=== PATIENT | female | born 1980 | race Caucasian/White ===

== ENCOUNTER 2016-12-07 23:43 | Inpatient (IN) | payer OTHER ==
[2016-12-08] MEDS ORDERED: Sodium Chloride 0.9% 10 ML Syringe FLUSH PRN (07:29)
[2016-12-08] MEDS ORDERED: Oxytocin/Lactated Ringers 10 UNIT/1,000 ML BAG IV SCH (07:30)
[2016-12-08] MEDS ORDERED: Nalbuphine 20 MG/1 ML Amp ONE (07:59)
[2016-12-08] MEDS ORDERED: Nalbuphine 20 MG/1 ML Amp IM ONE (07:59)
[2016-12-08] MEDS: Lactated Ringers 1,000 ML IV SCH ×4 (08:11→09:36)
[2016-12-08] MEDS ORDERED: fentaNYL 100 MCG/2 ML SDV ONE (08:25)
[2016-12-08] MEDS ORDERED: diphenhydrAMINE 50 MG/ML SDV IVPUSH PRN (08:39)
[2016-12-08] MEDS ORDERED: fentaNYL 100 MCG/2 ML SDV EPIDUR PRN (08:39)
[2016-12-08] MEDS ORDERED: ePHEDrine 50 MG/ML SDV IVPUSH PRN (08:39)
[2016-12-08] MEDS ORDERED: Bupivacaine/fentaNYL/NS 100 ML Bag EPIDUR SCH (08:45)
--- NOTE | 2016-12-08 08:45 | PCM.PREANE ---
Preanesthetic Assessment - Procedure Proposed Procedure: Patient with extreme anxiety- moving about- much reassurance given - Anesthesia/Transfusion/Family Hx Anesthesia History: Prior Anesthesia Without Reaction Family History of Anesthesia Reaction: No Transfusion History: No Prior Transfusion(s) - Review of Systems General: No Symptoms Pulmonary: No Symptoms Cardiovascular: No Symptoms Gastrointestinal: No Symptoms Neurological: No Symptoms Other: Reports: None - Physical Assessment Pulse: 103 O2 Sat by Pulse Oximetry: 96 Respiratory Rate: 20 Blood Pressure: 136/75 Height: 5 ft 5 in Weight: 103.873 kg ASA Class: 2 Mental Status: Alert & Oriented x3 Airway Class: Mallampati = 1 Dentition: Reports: Normal Dentition Thyro-Mental Finger Breadths: 3 Mouth Opening Finger Breadths: 3 ROM/Head Extension: Full Lungs: Clear to Auscultation, Normal Respiratory Effort Cardiovascular: Regular Rate, Regular Rhythm - Lab Values: Laboratory Last Values WBC 23.42 K/mm3 (3.98-10.04) H 12/08/16 07:11 RBC 4.48 M/mm3 (3.98-5.22) 12/08/16 07:11 Hgb 13.0 gm/L (11.2-15.7) 12/08/16 07:11 Hct 38.4 % (34.1-44.9) 12/08/16 07:11 MCV 85.7 fl (79.4-94.8) 12/08/16 07:11 MCH 29.0 pg (25.6-32.2) 12/08/16 07:11 MCHC 33.9 g/dl (32.2-35.5) 12/08/16 07:11 RDW Std Deviation 44.1 fL (36.4-46.3) 12/08/16 07:11 Plt Count 352 K/mm3 (182-369) 12/08/16 07:11 MPV 10.3 fl (9.4-12.3) 12/08/16 07:11 Neut % (Auto) 83.2 % (34.0-71.1) H 12/08/16 07:11 Lymph % (Auto) 11.1 % (19.3-51.7) L 12/08/16 07:11 [place] % (Auto) 5.3 % (4.7-12.5) 12/08/16 07:11 Eos % (Auto) 0 (0.7-5.8) L 12/08/16 07:11 Baso % (Auto) 0.1 % (0.1-1.2) 12/08/16 07:11 Neut # (Auto) 19.49 K/mm3 (1.56-6.13) H 12/08/16 07:11 Lymph # (Auto) 2.59 K/mm3 (1.18-3.74) 12/08/16 07:11 [place] # (Auto) 1.24 K/mm3 (0.24-0.36) H 12/08/16 07:11 Eos # (Auto) 0.01 K/mm3 (0.04-0.36) L 12/08/16 07:11 Baso # (Auto) 0.02 K/mm3 (0.01-0.08) 12/08/16 07:11 Manual Slide Review Normal smear 12/08/16 07:11 - Allergies Allergies/Adverse Reactions: Allergies Allergy/AdvReac Type Severity Reaction Status Date / Time No Known Allergies Allergy Verified 12/08/16 02:18 - Blood Blood Available: No - Acknowledgements Anesthesia Type Planned: Epidural Pt an Appropriate Candidate for the Planned Anesthesia: Yes Alternatives and Risks of Anesthesia Discussed w Pt/Guardian: Yes Pt/Guardian Understands and Agrees with Anesthesia Plan: Yes PreAnesthesia Questionnaire - Past Health History Medical/Surgical History: Denies Medical/Surgical History Cardiovascular History: Reports: None Respiratory History: Reports: None Gastrointestinal History: Reports: GERD (with preg) 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 (40 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 2 days) Para: 0 - Past Surgical History HEENT Surgical History: Reports: Oral Surgery Musculoskeletal Surgical History: Reports: Other (See Below) (pulled nail off toe) - SUBSTANCE USE Smoking Status *Q: Former Smoker Tobacco Use Within Last Twelve Months: No Second Hand Smoke Exposure: No Days Per Week of Alcohol Use: 0 Recreational Drug Use History: No - CURRENT (IN HOUSE) MEDS Current Meds: Current Medications Diphenhydramine HCl (Benadryl) 25 mg IVPUSH Q6H PRN PRN Reason: pruritis Ephedrine Sulfate (Ephedrine Sulfate) 5 mg IVPUSH ASDIRECTED PRN PRN Reason: Hypotension Fentanyl (Sublimaze) 100 mcg EPIDUR Q3H PRN PRN Reason: Pain Fentanyl/Bupivacaine HCl (Fentanyl/Bupivacaine/Ns 2 Mcg-0.125% 100 Ml) 100 ml EPIDUR ASDIRECTED GARY Lactated Ringer's (Ringers, Lactated) 1,000 mls @ 100 mls/hr IV ASDIRECTED GARY Last Admin: 12/08/16 08:11 Dose: 100 mls/hr Oxytocin/Lactated Ringer's (Pitocin In Lr 10 Units/1,000 Ml) 10 unit in 1,000 mls @ 100 mls/hr IV .CONTINUOUS [facility] Sodium Chloride (Saline Flush) 10 ml FLUSH ASDIRECTED PRN PRN Reason: Keep Vein Open Discontinued Medications Fentanyl (Sublimaze) Confirm Administered Dose 100 mcg .ROUTE .STK-MED ONE Stop: 12/08/16 08:26 Nalbuphine HCl (Nubain) 10 mg IM ONETIME ONE Stop: 12/08/16 08:00 Last Admin: 12/08/16 08:10 Dose: 20 mg Nalbuphine HCl (Nubain) Confirm Administered Dose 20 mg .ROUTE .STK-MED ONE Stop: 12/08/16 08:00 Last Admin: 12/08/16 08:11 Dose: Not Given
--- NOTE | 2016-12-08 09:15 | PCM.SN ---
- Free Text/Narrative Note: 12/08/16 [id number] IV started 20 guage right hand times 2 attempts. secured and flushes well. Home
--- NOTE | 2016-12-08 10:04 | PCM.LDHP ---
L&D History of Present Illness - General Date of Service: 12/08/16 Admit Problem/Dx: Patient Status Order with Admit Dx/Problem 12/08/16 00:00 Patient Status [ADT] Routine Admission Diagnosis/Problem Admission Diagnosis/Problem 12/08/16 09:44 Lavinia is a 36-year-old 1 para 0 white female at 40-2/7 weeks gestational age admitted for active labor Source of Information: Patient, Other History Limitations: Reports: No Limitations - History of Present Illness Introduction:: History of present illness: The patient is a 36-year-old 1 para 0 white female who began brittney during the course of the night of 12/07/2016. She is 40 2/7 weeks as dated by an early ultrasound done on 04/24/2016 at 7-5/7 weeks giving an TERA of 12/06/2016. Patient had a repeat ultrasound on 07/19/2016 supporting the first ultrasound dating. Patient began having contractions during the course of the night and is admitted she progressed from 3-5 cm relatively quickly. She initially did not desire any pain control but now has an epidural in place. Her tones of been reassuring. 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 Patient seen initially on 04/24/2016 for first visit and had regular care up until the time of admission to the hospital. Her vital signs were stable. Her weight gain has been from approximately 167 pounds to 212 pounds for a 47 pound weight gain. Patient's course is been relatively unremarkable. She does have a birthing plan. laboratory testing: Blood is O+ with a negative antibody screen. First hemoglobin was 13.6 and platelets are 270,000. Rubella titer was positive. Hepatitis B surface antigen was nonreactive. HIV was negative. Chlamydia and gonorrhea assays were both negative. Second Trimester hemoglobin was 11.4. Platelets at second trimester 270,000 1R glucose tolerance test was 97 mg/dL. TSH done in the fall of 2015 was normal at 1.92 microunits per milliliter. Group B strep screen was negative. Allergies: None Medications: 1. vitamins 1 daily by mouth. Past medical history: 1. History of polyarthralgia 2. Rheumatoid factor positive 3. History positive ovarian syndrome 4. High risk HPV infection Past surgical history: 1. D&C 2. [place] teeth extraction. Family history: Mother with hypertension. Father with history of lung cancer. One brother healthy. Mother with some back problems. No bleeding or blood clotting problems noted in the family. Social history: Patient is . is Kyle. She denies any significant alcohol, drugs or tobacco. She works at [employer]. They live in the [place] area. Review of systems: In general patient is in labor and initially was having a lot of pain and she is not doing well status post epidural Skin: negative Cardiovascular: No chest pain or exercise intolerance Respiratory: No infectious symptoms or shortness of breath. Breasts: Changes since GI: No concerns : Changes associated with Musculoskeletal: Negative Neurologic: Negative. Physical exam in general the patient is a well-developed, well-nourished, pleasant female after the epidural was placed who appears fairly oriented 3 and a reasonably good historian. Skin is warm and dry without lesions. HEENT, neck and back the normal snip her lungs are clear with good breath sounds in all lung leija. Cardiovascular exam shows regular rate and rhythm without murmurs. Breast exam is deferred. Abdomen is protuberant with fundal height consistent with dates. Cervical exam shows upon initial evaluation cervix to be dilated 5 cm, 95% effaced, bulging bag of estrada, mid position, soft. Extremities and neurological exam are grossly within normal limits. 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: - Past Surgical History HEENT Surgical History: Reports: Oral Surgery Musculoskeletal Surgical History: Reports: Other (See Below) (pulled nail off toe) Social & Family History - Family History Family Medical History: Noncontributory - Tobacco Use Smoking Status *Q: Former Smoker Years of Tobacco use: 8 Packs/Tins Daily: 0.5 Used Tobacco, but Quit: Yes Month Tobacco Last Used: Second Hand Smoke Exposure: No - Caffeine Use Caffeine Use: Reports: Coffee Other Caffeine Use: 1/day - Alcohol Use Days Per Week of Alcohol Use: 0 - Recreational Drug Use Recreational Drug Use: No H&P Review of Systems - Review of Systems: Review Of Systems: See Below L&D Exam - Exam Exam: See Below - Vital Signs Vital Signs: Last Vital Signs Temp Pulse 103 H 12/08/16 08:45 Resp 20 12/08/16 08:45 BP 136/75 12/08/16 08:45 Pulse Ox 96 12/08/16 08:45 Weight: 103.873 kg - Patient Data Lab Results Last 24 hrs: Laboratory Results - last 24 hr 12/08/16 Range/Units 07:11 WBC 23.42 H (3.98-10.04) K/mm3 RBC 4.48 (3.98-5.22) M/mm3 Hgb 13.0 (11.2-15.7) gm/L Hct 38.4 (34.1-44.9) % MCV 85.7 (79.4-94.8) fl MCH 29.0 (25.6-32.2) pg MCHC 33.9 (32.2-35.5) g/dl RDW Std Deviation 44.1 (36.4-46.3) fL Plt Count 352 (182-369) K/mm3 MPV 10.3 (9.4-12.3) fl Neut % (Auto) 83.2 H (34.0-71.1) % Lymph % (Auto) 11.1 L (19.3-51.7) % [place] % (Auto) 5.3 (4.7-12.5) % Eos % (Auto) 0 L (0.7-5.8) Baso % (Auto) 0.1 (0.1-1.2) % Neut # (Auto) 19.49 H (1.56-6.13) K/mm3 Lymph # (Auto) 2.59 (1.18-3.74) K/mm3 [place] # (Auto) 1.24 H (0.24-0.36) K/mm3 Eos # (Auto) 0.01 L (0.04-0.36) K/mm3 Baso # (Auto) 0.02 (0.01-0.08) K/mm3 Manual Slide Review Normal smear Result Diagrams: 12/08/16 07:11 Problem List Initiated/Reviewed/Updated: Yes Orders Last 24hrs: Active Orders 24 hr Category Date Time Status Patient Status [ADT] Routine ADT 12/08/16 00:00 Active Activity as Tolerated [RC] PFP Care 12/08/16 02:19 Active Communication Order [RC] ASDIRECTED Care 12/08/16 02:19 Active Heart Tones [RC] ASDIRECTED Care 12/08/16 02:19 Active Notify Provider [RC] ASDIRECTED Care 12/08/16 08:39 Active Notify Provider [RC] PFP Care 12/08/16 02:19 Active Notify Provider [RC] PRN Care 12/08/16 02:19 Active Peripheral IV Care [RC] . DIRECTED Care 12/08/16 07:30 Active Vital Signs [RC] PER UNIT ROUTINE Care 12/08/16 02:19 Active Bupivacaine/fentaNYL/NS [fentaNYL/Bupivacaine/NS 2 MCG- Med 12/08/16 08:45 Active 0.125% 100 ML] 100 ml EPIDUR ASDIRECTED Lactated Ringers [Ringers, Lactated] 1,000 ml Med 12/08/16 07:30 Active IV ASDIRECTED Oxytocin/Lactated Ringers [Pitocin in LR 10 Units/1,000 Med 12/08/16 07:30 Active ML] 10 unit in 1,000 ml IV .CONTINUOUS Sodium Chloride 0.9% [Saline Flush] Med 12/08/16 07:29 Active 10 ml FLUSH ASDIRECTED PRN diphenhydrAMINE [Benadryl] Med 12/08/16 08:39 Active 25 mg IVPUSH Q6H PRN ePHEDrine [ePHEDrine Sulfate] Med 12/08/16 08:39 Active 5 mg IVPUSH ASDIRECTED PRN fentaNYL [Sublimaze] Med 12/08/16 08:39 Active 100 mcg EPIDUR Q3H PRN Electronic Heart Tones Ext w TOCO [WOMSER] Oth 12/08/16 02:19 Ordered Routine Electronic Heart Tones Internal [WOMSER] Per Unit Oth 12/08/16 02:19 Ordered Routine Peripheral IV Insertion Adult [OM.PC] Routine Oth 12/08/16 07:30 Ordered Resuscitation Status Routine Resus Stat 12/08/16 02:19 Ordered Medication Orders Diphenhydramine HCl (Benadryl) 25 mg IVPUSH Q6H PRN PRN Reason: pruritis Ephedrine Sulfate (Ephedrine Sulfate) 5 mg IVPUSH ASDIRECTED PRN PRN Reason: Hypotension Fentanyl (Sublimaze) 100 mcg EPIDUR Q3H PRN PRN Reason: Pain Last Admin: 12/08/16 08:46 Dose: 100 mcg Fentanyl/Bupivacaine HCl (Fentanyl/Bupivacaine/Ns 2 Mcg-0.125% 100 Ml) 100 ml EPIDUR ASDIRECTED [facility] Last Admin: 12/08/16 08:46 Dose: 100 ml Lactated Ringer's (Ringers, Lactated) 1,000 mls @ 100 mls/hr IV ASDIRECTED [facility] Last Admin: 12/08/16 09:36 Dose: 100 mls/hr Infusion: 12/08/16 09:00 Dose: 100 mls/hr Admin: 12/08/16 08:59 Dose: 100 mls/hr Infusion: 12/08/16 08:59 Dose: 100 mls/hr Admin: 12/08/16 08:11 Dose: 100 mls/hr Oxytocin/Lactated Ringer's (Pitocin In Lr 10 Units/1,000 Ml) 10 unit in 1,000 mls @ 100 mls/hr IV .CONTINUOUS [facility] Sodium Chloride (Saline Flush) 10 ml FLUSH ASDIRECTED PRN PRN Reason: Keep Vein Open Assessment/Plan Comment:: Assessment: 1. 40-2/7 week intrauterine , active labor with normal progression. 2. Group B strep negative 3. Epidural in place and working well. 4. Patient plans to nurse. 5. Patient wants natural childbirth if possible. Plan: 1. Anticipate normal spontaneous vaginal delivery 2. Epidural for pain 3. Support nursing decision.
[2016-12-08] MEDS ORDERED: Bupivacaine 0.25% 10 ML SDV ONE (15:01)
[2016-12-08] MEDS ORDERED: Benzocaine/Menthol 20%-0.5% Spray 56 GM Canister TOP PRN (15:01)
[2016-12-08] MEDS ORDERED: Acetaminophen 325 MG Tab PO PRN (15:01)
[2016-12-08] MEDS ORDERED: Docusate Sodium 100 MG Cap PO PRN (15:01)
[2016-12-08] MEDS ORDERED: Lanolin 100% Cream 7 GM Tube TOP PRN (15:01)
[2016-12-08] MEDS ORDERED: Witch Hazel Medicated Pads 100/Jar TOP PRN (15:01)
--- NOTE | 2016-12-08 15:01 | PCM.SN ---
- Free Text/Narrative Note: Lavinia is a 36-year-old 1 now para 1001 white female who is admitted on the a.m. of 12/08/2016 at 40-4/7 weeks gestational age in active labor. She isn't initially found to have dilated to 3 cm from 1-2 on her last clinic visit. She then slowly but very consistently dilated to complete cervical dilation by approximately 1200 hrs. She is allowed to labor down for approximately an hour and a half and then began pushing. Amniotic fluid was minimal but did appear clear. She had an epidural for pain control. Meeks catheter was placed for uterine drainage. She delivered a viable, mccarty, female with Apgars of 9 and 9, a weight of 3930 grams (8 pounds and 10.6 ounces), a length of 20.7 inches. She delivered in a occiput anterior position. Baby was completely delivered, nose and mouth are bulb suctioned the baby was placed on the mom's abdomen. The umbilical cord which had 3 vessels was allowed to stop pulsating at which time was clamped 2 and cut by the father of the baby. Cord blood was then obtained. Placenta was then delivered eventually in a Plata presentation. It appeared intact and complete. Patient had a second-degree perineal laceration which was repaired with 3-0 Monocryl in a routine fashion. She had a very superficial periclitoral laceration on the left side. This however was not bleeding and was not significantly anatomically distorted. No stitches were placed in this area. Patient refused Pitocin IV after delivery. Fundal massage was used to help contract the uterus to decrease bleeding. Blood loss was 200 mL. Condition: Good
--- NOTE | 2016-12-09 08:39 | PCM.SN ---
- Free Text/Narrative Note: day: Patient is doing well. She has minimal lochia, is voiding well, ambulating well. She has some pain in the back where the epidural was placed. Vital signs are stable, patient had a low-grade temp last evening but this is now resolved. Abdomen soft, nontender uterus is at the umbilicus. It is nontender. Extremities and are within normal limits. +1 pitting edema is present but this was present prior to delivery. White blood count is elevated at 23,000. No evidence of infection at this time. Assessment: 1. day 1doing well clinically 2. Elevated white blood count-no clinical evidence of infection-most probably secondary to labor and delivery Plan: 1. Monitor clinically for signs of infection 2. Recheck white blood count in a.m. Possibly home tomorrow.
[2016-12-09] MEDS ORDERED: Prenatal Multivitamin with Calcium/Folic Acid/Iron Tab PO SCH (09:00)
[2016-12-09] MEDS: Ibuprofen 600 MG Tab PO PRN ×2 (10:24→19:20)
--- NOTE | 2016-12-09 20:04 | PCM48HPAN ---
Post Anesthesia Note - EVALUATION WITHIN 48HRS OF ANESTHETIC Vital Signs in Normal Range: Yes Patient Participated in Evaluation: Yes Respiratory Function Stable: Yes Airway Patent: Yes Cardiovascular Function Stable: Yes Hydration Status Stable: Yes Pain Control Satisfactory: Yes Nausea and Vomiting Control Satisfactory: Yes Mental Status Recovered: Yes
[2016-12-09 22:59] VITALS: BP 106/71
--- NOTE | 2016-12-10 06:46 | PCM.DCSUM1 ---
Discharge Summary - Hospital Course Free Text/Narrative:: Lavinia is a 36-year-old 1 now para 1001 white female who is admitted on the a.m. of 12/08/2016 at 40-4/7 weeks gestational age in active labor. She was initially found to have dilated to 3 cm from 1-2 on her last clinic visit. She then slowly but very consistently dilated to complete cervical dilation by approximately 1200 hrs. She is allowed to labor down for approximately an hour and a half and then began pushing. Amniotic fluid was minimal but did appear clear. She had an epidural for pain control. Meeks catheter was placed for uterine drainage. She delivered a viable, mccarty, female infant with Apgars of 9 and 9, a weight of 3930 grams (8 pounds and 10.6 ounces), a length of 20.7 inches. She delivered in a occiput anterior position. Baby was completely delivered, nose and mouth are bulb suctioned the baby was placed on the mom's abdomen. The umbilical cord which had 3 vessels was allowed to stop pulsating at which time was clamped 2 and cut by the father of the baby. Cord blood was then obtained. Placenta was then delivered eventually in a Plata presentation. It appeared intact and complete. Patient had a second-degree perineal laceration which was repaired with 3-0 Monocryl in a routine fashion. She had a very superficial periclitoral laceration on the left side. This however was not bleeding and was not significantly anatomically distorted. No stitches were placed in this area. Patient refused Pitocin IV after delivery. Fundal massage was used to help contract the uterus to decrease bleeding. Blood loss was 200 mL. patient is doing well. She is nursing without concerns, ambulating well and is voiding without problems. She has some back pain from the epidural site but is doing well and is happy with the results. She is desiring to go home today. - Discharge Data Discharge Date: 12/10/16 Discharge Disposition: Home, Self-Care 01 Condition: Good - Patient Instructions Diet: Regular Diet as Tolerated (Nursing diet was increased calories and calcium ) Activity: As Tolerated (No intercourse or tampons until bleeding resolves) Driving: Do Not Drive (2 days) Showering/Bathing: May Shower (May take a bath) Notify Provider of: Fever, Increased Pain, Swelling and Redness, Nausea and/or Vomiting - Discharge Plan Home Medications: Home Meds Ibuprofen [IJD: Ibuprofen] 600 mg PO Q4H PRN tablet 12/10/16 [Rx] Vit with Ca/FA/Iron [ Plus Iron] 1 each PO DAILY tablet [Rx] Patient Handouts: Vaginal Delivery, Care After Referrals: Sofía Paulino MD [Physician] - (Return to clinicDr. Paulino6 weeks.) - Discharge Summary/Plan Comment DC Time >30 min.: No Discharge Summary/Plan Comment: Discharge instructions: 1. Discharge home 2. Regular, high fiber, nursing diet was increased calories and calcium is recommended. 3. Follow-up and activity discussed with patient in detail. 4. Precautions given concern increased pain, bleeding, temperature, signs/ symptoms of DVT/PE. 5. Medications per home medication was printed, discussed with and given to the patient. 6. Return to clinic-6 weeks-Dr. Paulino. Diagnosis: 40-4/7 week intrauterine -delivered Condition: Good - Patient Data Vitals - Most Recent: Last Vital Signs Temp 36.8 C 12/09/16 22:09 Pulse 80 12/09/16 22:09 Resp 16 12/09/16 22:09 BP 106/71 12/09/16 22:09 Pulse Ox 96 12/09/16 22:09 Weight - Most Recent: 103.873 kg I&O - Last 24 hours: Intake & Output 12/09/16 12/09/16 12/10/16 14:59 22:59 06:59 Intake Total 180 180 Balance 180 180 Lab Results - Last 24 hrs: Laboratory Results - last 24 hr 12/09/16 Range/Units 07:25 WBC 22.77 H (3.98-10.04) K/mm3 RBC 3.75 L (3.98-5.22) M/mm3 Hgb 10.8 L (11.2-15.7) gm/L Hct 32.4 L (34.1-44.9) % MCV 86.4 (79.4-94.8) fl MCH 28.8 (25.6-32.2) pg MCHC 33.3 (32.2-35.5) g/dl RDW Std Deviation 45.7 (36.4-46.3) fL Plt Count 260 (182-369) K/mm3 MPV 10.2 (9.4-12.3) fl Med Orders - Current: Current Medications Acetaminophen (Tylenol) 650 mg PO Q4H PRN PRN Reason: mild pain or fever Benzocaine/Menthol (Dermoplast Pain Relief Hessel) 0 gm TOP ASDIRECTED PRN PRN Reason: Perineal Comfort Measure Last Admin: 12/08/16 15:51 Dose: 1 applic Docusate Sodium (Colace) 100 mg PO BID PRN PRN Reason: Constipation Emollient Ointment (Lansinoh Hpa) 0 gm TOP ASDIRECTED PRN PRN Reason: Sore Nipples Ibuprofen (Motrin) 600 mg PO Q4H PRN PRN Reason: Mild pain or fever Last Admin: 12/09/16 19:20 Dose: 600 mg Prenat Multivit/Pet Training Instructor/Iron/Folic Ac ( Plus Iron) 1 each PO DAILY [facility] Last Admin: 12/09/16 10:24 Dose: 1 each Witch Penny (Tucks) 1 pad TOP ASDIRECTED PRN PRN Reason: Hemorrhoid pain Last Admin: 12/08/16 15:51 Dose: 1 applic Discontinued Medications Diphenhydramine HCl (Benadryl) 25 mg IVPUSH Q6H PRN PRN Reason: pruritis Ephedrine Sulfate (Ephedrine Sulfate) 5 mg IVPUSH ASDIRECTED PRN PRN Reason: Hypotension Fentanyl (Sublimaze) Confirm Administered Dose 100 mcg .ROUTE .STK-MED ONE Stop: 12/08/16 08:26 Last Admin: 12/08/16 12:23 Dose: Not Given Fentanyl (Sublimaze) 100 mcg EPIDUR Q3H PRN PRN Reason: Pain Last Admin: 12/08/16 08:46 Dose: 100 mcg Fentanyl/Bupivacaine HCl (Fentanyl/Bupivacaine/Ns 2 Mcg-0.125% 100 Ml) 100 ml EPIDUR ASDIRECTED [facility] Last Admin: 12/08/16 08:46 Dose: 100 ml Lactated Ringer's (Ringers, Lactated) 1,000 mls @ 100 mls/hr IV ASDIRECTED [facility] Last Admin: 12/08/16 09:36 Dose: 100 mls/hr Oxytocin/Lactated Ringer's (Pitocin In Lr 10 Units/1,000 Ml) 10 unit in 1,000 mls @ 100 mls/hr IV .CONTINUOUS [facility] Nalbuphine HCl (Nubain) 10 mg IM ONETIME ONE Stop: 12/08/16 08:00 Last Admin: 12/08/16 08:10 Dose: 10 mg Nalbuphine HCl (Nubain) Confirm Administered Dose 20 mg .ROUTE .STK-MED ONE Stop: 12/08/16 08:00 Last Admin: 12/08/16 08:11 Dose: Not Given Sodium Chloride (Saline Flush) 10 ml FLUSH ASDIRECTED PRN PRN Reason: Keep Vein Open *Q Meaningful Use (DIS) - VTE *Q VTE Criteria *Q: - Stroke *Q Stroke Criteria *Q: - AMI *Q AMI Criteria *Q:
[2016-12-10] MEDS: Ibuprofen 600 MG Tab PO PRN (07:57)
== END 2016-12-10 11:55 | disposition home or self-care (01) | DRG 775 ==
LOC: JD.OBCHECK 23:43 → JD.OB 23:43 → JD.OBCHECK 12-08 → JD.OB 12-08 14:25 → OBSVTOIN 12-08 14:25
PROVIDERS: ADMIT Obstetrics & Gynecology; ATTEND Obstetrics & Gynecology
PROC: 10E0XZZ Delivery of Products of Conception, External Approach (ICD-10-PCS; principal; 2016-12-08)
PROC: 0KQM0ZZ Repair Perineum Muscle, Open Approach (ICD-10-PCS; 2016-12-08)
PROC: 00HU33Z Insertion of Infusion Device into Spinal Canal, Percutaneous Approach (ICD-10-PCS; 2016-12-08)
PROC: 3E0R3CZ (ICD-10-PCS; 2016-12-08)
DX: O70.1 Second degree perineal laceration during delivery (principal); Z37.0 Single live birth; Z3A.40 40 weeks gestation of pregnancy; Z87.891 Personal history of nicotine dependence
CPT/HCPCS: 36415; 85025; 85027; A9270-GY; J2300; J3010; J7120

== ENCOUNTER 2022-03-30 23:11 | Emergency (ER) | payer OTHER ==
[2022-03-30 23:28] VITALS: BP 122/81; PULSE 83
[2022-03-30] MEDS ORDERED: Sodium Chloride 0.9% 10 ML Syringe FLUSH PRN (23:40)
[2022-03-31] MEDS ORDERED: Ondansetron 4 MG/2 ML SDV IVPUSH ONE (00:01)
[2022-03-31] MEDS ORDERED: HYDROmorphone 0.5 MG/0.5 ML Syringe IVPUSH ONE (00:01)
[2022-03-31] MEDS ORDERED: Ketorolac 30 MG/ML SDV IVPUSH ONE (00:01)
[2022-03-31] MEDS ORDERED: cefTRIAXone 1 GM in Sodium Chloride 0.9% 100 ML IV ONE (01:37)
== END 2022-03-31 02:28 | disposition home or self-care (01) ==
LOC: JD.ED 23:11
DX: N39.0 Urinary tract infection, site not specified (principal); Z79.899 Other long term (current) drug therapy
CPT/HCPCS: 36415; 74176; 80053; 81001; 83690; 84703; 85025; 96365; 96375; 99284; J0696; J1170; J1885; J2405; J3490

== ENCOUNTER 2023-03-15 22:00 | Emergency (ER) | payer OTHER ==
[2023-03-15] MEDS ORDERED: Lidocaine 1% 10 ML MDV ONE (22:23)
[2023-03-15 22:28] VITALS: BP 132/96; PULSE 82
[2023-03-15] MEDS ORDERED: Amoxicillin/Clavulanate K 875-125 MG Tab PO ONE (22:33)
== END 2023-03-15 23:26 | disposition home or self-care (01) ==
LOC: JD.ED 22:00
DX: S61.451A Open bite of right hand, initial encounter (principal); Z79.899 Other long term (current) drug therapy; W54.0XXA Bitten by dog, initial encounter
CPT/HCPCS: 12001; 99283; A9270; J3490